=== PATIENT | male | born 1975 | race Caucasian/White ===

== ENCOUNTER 2021-09-05 11:59 | Emergency (ER) | payer OTHER, SELFPAY ==
[~2021-09-05] VITALS: Ht 172.7 cm; Wt 89.1 kg
[2021-09-05] MEDS ORDERED: BACT800T5 PO (15:48)
[2021-09-05 16:19] VITALS: BP 182/100
[2021-09-05] MEDS ORDERED: LISI10TA22 PO (17:25)
== END 2021-09-05 17:34 | disposition home or self-care (01) ==
LOC: M ED 11:59
DX: N50.812 Left testicular pain (principal); R82.998 Other abnormal findings in urine; R30.0 Dysuria

== ENCOUNTER 2023-08-22 22:25 | Emergency (ER) | payer SELFPAY ==
[~2023-08-22 22:25] MED LIST: BACT800T5 PO; LISI10TA22 PO
[2023-08-22] MEDS ORDERED: PROPOFOL 1,000 MG/100 ML VIAL As Ordered ONE (22:34)
[2023-08-22] MEDS ORDERED: ISOVUE-370 76% 100ML VIAL As Ordered ONE (22:40)
[2023-08-22] MEDS: ROCURONIUM BROMIDE 50MG/5ML VIAL IV ONE (23:11)
[2023-08-22] MEDS: ETOMIDATE INJ 20MG/10ML VIAL IV ONE (23:11)
[2023-08-22] MEDS: propofoL 1,000 MG in IV 1 EA IV SCH (23:15)
[2023-08-22] MEDS ORDERED: MORPHINE 4 MG/ML 1ML VIAL As Ordered ONE (23:18)
[2023-08-22] MEDS ORDERED: FENTANYL DRIP LOCK BOX KEY 1 EACH XX PRN (23:20)
[2023-08-22] MEDS ORDERED: fentaNYL CITRATE/NaCl 1,000 MCG in IV 1 EA IV SCH (23:20)
[2023-08-22 23:29] LABS: ABG HCO3 14.5 MMOL/L (22.0-26.0); ABG O2 SATURATION 94.9 % (95.0-99.0); ABG PARTIAL PRESSURE CO2 39.1 mmHg (35.0-45.0); ABG PARTIAL PRESSURE O2 96.4 mmHg (75.0-100.0); ABG STANDARD HCO3 14.3 MMOL/L. (22.0-26.0); ABG TOTAL CO2 15.7 MMOL/L (22.0-29.0)
[2023-08-22] MEDS: ceFAZolin SOD 2 GM in IV 1 EA IV ONE (23:29)
[2023-08-22 23:31] LABS: BASO % 0.2 % (0.0-1.0); EOS # 0.1 10^3/uL (0.0-0.5); EOS % 0.7 % (0.0-3.0); HEMATOCRIT 34.6 % (42.0-52.0); HEMOGLOBIN 11.3 g/dl (13.5-17.5); LYMPH # 2.3 10^3/uL (1.5-5.0); MEAN CORPUSCULAR HEMOGLOBIN 31.2 pg (27.0-33.0); MEAN CORPUSCULAR HGB CONC 32.7 g/dl (32.0-36.5); MEAN CORPUSCULAR VOLUME 95.6 fl (80.0-96.0); MONO # 0.6 10^3/uL (0.0-0.8); MONO % 3.9 % (2.0-8.0); NEUTROPHILS # 12.9 10^3/uL (1.5-8.5); NEUTROPHILS % 79.1 % (36.0-66.0); PLATELET COUNT, AUTOMATED 199 10^3/uL (150-450); RED BLOOD COUNT 3.62 10^6/uL (4.30-6.10); WHITE BLOOD COUNT 16.3 10^3/uL (4.0-10.0)
[2023-08-22 23:33] LABS: APPEARANCE, URINE CLEAR (CLEAR); BACTERIA, URINE AUTO NEGATIVE (NEGATIVE); BILIRUBIN, URINE AUTO NEGATIVE (NEGATIVE); BLOOD, URINE BLOOD 2+ (NEGATIVE); COLOR, URINE COLORLESS (YELLOW); GLUCOSE, URINE (UA) AUTO NEGATIVE (NEGATIVE); KETONE, URINE AUTO NEGATIVE (NEGATIVE); LEUKOCYTE ESTERASE, URINE AUTO NEGATIVE (NEGATIVE); NITRITE, URINE AUTO NEGATIVE (NEGATIVE); PROTEIN, URINE AUTO NEGATIVE (NEGATIVE); RBC, URINE AUTO 0 /HPF (0-3); SPECIFIC GRAVITY URINE AUTO 1.001 (1.002-1.035); SQUAMOUS EPITHELIAL CELL UR AU 0 /HPF (0-6); UROBILINOGEN, URINE AUTO 0.2 mg/dL (0.0-2.0); WBC, URINE AUTO 0 /HPF (0-3)
[2023-08-22 23:34] LABS: VENOUS BASE EXCESS -7.5 (-2.0-2.0); VENOUS PH 7.375 UNITS (7.330-7.430); VENOUS TOTAL CO2 16.9 MMOL/L (24.0-28.0)
[2023-08-22 23:34] LABS: ABG pH (ARTERIAL) 7.186 UNITS (7.350-7.450)
[2023-08-22 23:36] LABS: VENOUS O2 SATURATION 99.1 % (60.0-80.0); VENOUS PARTIAL PRESSURE O2 221.5 mmHg (30.0-50.0); VENOUS STANDARD HCO3 18.6 MMOL/L
[2023-08-22] MEDS: NS 1,000 ML IV ONE (23:39)
[2023-08-22] MEDS: MORPHINE 4 MG/ML 1ML VIAL IV ONE (23:39)
[2023-08-22] MEDS: BOOSTRIX VACCINE (TETANUS/DIPHTH/ACEL. PERTUSSIS) 0.5ML SYR IM ONE (23:41)
[2023-08-22 23:43] LABS: INR 1.2; PARTIAL THROMBOPLASTIN TIME 24.1 SECONDS (24.8-34.2); PROTHROMBIN TIME 14.8 SECONDS (12.5-14.5)
[2023-08-22] MEDS ORDERED: LIDOCAINE 2% MDV 20ML VIAL As Ordered ONE (23:49)
[2023-08-22] MEDS: MIDAZOLAM 100MG/100ML-0.9%NACL 100 MG in IV 1 EA IV SCH (23:51)
[2023-08-22 23:58] LABS: AMPHETAMINES LEVEL URINE NEGATIVE (NEGATIVE); BARBITURATES URINE NEGATIVE (NEGATIVE); BENZODIAZEPINES URINE NEGATIVE (NEGATIVE); COCAINE METABOLITE URINE NEGATIVE (NEGATIVE); METHADONE URINE NEGATIVE (NEGATIVE); OPIATES URINE NEGATIVE (NEGATIVE); PHENCYCLIDINE URINE NEGATIVE (NEGATIVE)
[2023-08-23 00:13] LABS: CANNABINOIDS URINE POSITIVE (NEGATIVE); ETHYL ALCOHOL (ETHANOL) 0.012 % (0.000-0.010)
[2023-08-23 00:15] LABS: ALBUMIN 2.7 G/DL (3.2-5.2); BILIRUBIN,DIRECT 0.1 MG/DL (<0.4); BILIRUBIN,TOTAL 0.4 MG/DL (0.3-1.2); CALCIUM LEVEL 7.3 MG/DL (8.5-10.1); CK-MB VALUE MASS 14.3 NG/ML (<3.6); POTASSIUM SERUM 2.8 MMOL/L (3.5-5.1); TOTAL PROTEIN 4.5 G/DL (5.7-8.2)
[2023-08-23 00:20] VITALS: TEMP 97.8
[2023-08-23] MEDS: MIDAZOLAM INJ 2MG/2ML VIAL IV PRN (00:20)
[2023-08-23 00:25] LABS: MB/CK RELATIVE INDEX 1.49 (< OR =4)
[2023-08-23] MEDS: NS 2,740 ML in IV 1 EA IV ONE (00:41)
[2023-08-23] MEDS: LIDOCAINE 1% MDV 20ML VIAL SC ONE (00:42)
[2023-08-23 01:00] VITALS: BP 107/59; O2SAT 95
[2023-08-23 12:43] LABS: CREATININE FOR GFR 1.5 MG/DL (0.70-1.30); GLOMERULAR FILTRATION RATE 53.4 (>60)
== END 2023-08-23 01:05 | disposition short-term general hospital (02) ==
LOC: M ED 22:25 → EDBD 22:25 → M ED 08-23 01:05
DX: S22.5XXA Flail chest, initial encounter for closed fracture (principal); S52.251B Displaced comminuted fracture of shaft of ulna, right arm, initial encounter for open fracture type I or II; V20.49XA Other motorcycle driver injured in collision with pedestrian or animal in traffic accident, initial encounter; J93.9 Pneumothorax, unspecified; J94.2 Hemothorax; Y92.9 Unspecified place or not applicable; Y93.9 Activity, unspecified; Y99.9 Unspecified external cause status; Z79.899 Other long term (current) drug therapy; Z23 Encounter for immunization
CPT/HCPCS: 36600; 70450; 70486; 71045; 71260; 72125; 72128; 72131; 72170; 73060; 73090; 74177; 80047; 80048; 80076; 80307; 81001; 82077; 82150; 82550; 82553; 82803; 83605; 83690; 84484; 85025; 85610; 85730; 86850; 86900; 86901; 86920; 87635; 90471; 90715; 93005; 93041; 94760; 96365; 96366; 96372; 96374; 96375; 99291; 99292; J0690; J2250; Q9967

== ENCOUNTER 2024-04-04 08:52 | Emergency (ER) | payer MEDICAID, OTHER ==
[~2024-04-04] VITALS: Ht 170.2 cm; Wt 84.3 kg
[2024-04-04 08:59] VITALS: BP 181/81; TEMP 98.2; O2SAT 95
[2024-04-04] MEDS: FLUORESCEIN OPHTH 1MG STRIP OD ONE (09:35)
[2024-04-04] MEDS: PROPARACAINE 0.5% OPHTH SOL 15ML OD ONE (09:40)
[2024-04-04] MEDS ORDERED: ERYT5OIN25 OP (10:23)
[2024-04-04] MEDS ORDERED: KETO0.5S4 OP (10:23)
== END 2024-04-04 11:18 | disposition home or self-care (01) ==
LOC: M ED 08:52
DX: S05.01XA Injury of conjunctiva and corneal abrasion without foreign body, right eye, initial encounter (principal); Y92.9 Unspecified place or not applicable; Y93.9 Activity, unspecified; Y99.9 Unspecified external cause status; Z79.2 Long term (current) use of antibiotics; Z79.899 Other long term (current) drug therapy